=== PATIENT | female | born 1975 | race Caucasian/White ===

== ENCOUNTER 2022-03-07 08:51 | Emergency (ER) | payer OTHER ==
[2022-03-07 09:31] LABS: HCG UR QUAL POSITIVE
[2022-03-07 09:36] LABS: BASOPHILS # (AUTO) 0.1 10^3/uL (0.0-0.1); BASOPHILS % (AUTO) 0.8 %; EOSINOPHILS # (AUTO) 0.1 10^3/uL (0.0-0.7); EOSINOPHILS % (AUTO) 0.9 %; HCT - HEMATOCRIT 38.5 % (37.0-47.0); HGB - HEMOGLOBIN 12.8 g/dL (12.0-16.0); LYMPHOCYTES # (AUTO) 1.7 10^3/uL (1.5-3.5); LYMPHOCYTES % (AUTO) 15.2 %; MEAN CORPUSCULAR HEMOGLOBIN 31.3 pg (27.0-31.0); MEAN CORPUSCULAR HGB CONC 33.2 g/dL (32.0-36.0); MEAN CORPUSCULAR VOLUME 94.1 fL (81.0-99.0); MEAN PLATELET VOLUME 9.5 fL (7.9-10.8); MONOCYTES # (AUTO) 0.4 10^3/uL (0.0-1.0); MONOCYTES % (AUTO) 3.9 %; NEUTROPHILS # (AUTO) 8.8 10^3/uL (1.5-6.6); NEUTROPHILS % (AUTO) 78.7 %; PLT - PLATELET COUNT 291 10^3/uL (130-450); RED BLOOD COUNT 4.09 10^6/uL (4.20-5.40); RED CELL DISTRIBUTION WIDTH 12.9 % (12.0-15.0); WHITE BLOOD COUNT 11.2 x10^3/uL (4.8-10.8)
[2022-03-07 09:48] LABS: ALBUMIN 4.4 g/dL (3.2-5.5); ALBUMIN/GLOBULIN RATIO 1.3 (1.0-2.2); BILIRUBIN,TOTAL 0.8 mg/dL (0.2-1.0); CALCIUM 9.1 mg/dL (8.5-10.3); CREATININE 0.7 mg/dL (0.4-1.0); POTASSIUM 4.2 mmol/L (3.5-5.0); TOTAL PROTEIN 7.7 g/dL (6.7-8.2)
--- NOTE | 2022-03-07 13:33 | Ultrasound Report ---
PROCEDURE: OB First Trimester w/TV INDICATIONS: preg, vb OUTSIDE/PRIOR DATING DATA: Last menstrual period (LMP): 01/17/2022. LMP-based estimated date of delivery (KIP): 10/24/2022. First dating scan (date and location): 03/07/2022. Estimated date of delivery (KIP) from first dating scan: Not applicable. TECHNIQUE: Real-time scanning was performed of the fetus and maternal pelvic organs, with image documentation. Endovaginal scanning was also performed to better visualize the fetus and maternal ovaries. COMPARISON: None FINDINGS: Embryo: Anechoic sac noted within the central uterus. There is a probable yolk sac identified. No fe cecily pole identified. Heart rate: No heart motion identified. Measurement variability in dating: +/- 4 weeks by LMP, +/- 7 days by mean sac diameter (use before 6 weeks gestation if crown-rump length not able to be measured), +/- 5 days by crown-rump length (6-12 weeks gestation). Maternal organs: 1.6 x 1.0 x 1.5 cm probable right corpus luteal cyst. IMPRESSION: Intrauterine anechoic sac and probable yolk sac identified. No definite pole identified. Findin gs may represent early intrauterine , nonviable or occult ectopic . Recom mend close clinical observation, correlation with serum beta hCG and short-term follow-up ultrasound in one week. Reviewed by: Cathleen Mcghee MD, PhD on 03/07/2022 1:31 PM PDT Approved by: Cathleen Mcghee MD, PhD on 03/07/2022 1:31 PM PDT Station ID: [id number]
--- NOTE | 2022-03-07 14:00 | ED Physician Documentation ---
PD HPI FEMALE - Stated complaint Stated Complaint: MISCARRIAGE - Chief complaint Chief Complaint: Abd Pain - History obtained from History obtained from: Patient - Additional information Additional information: Patient comes to the emergency department chief complaint of vaginal bleeding that 2 days ago. She states it was very heavy at that time but now has diminished almost nothing. She states her last menstrual period was in early December but she was traveling so the earliest she could become was on January 29. The patient states that she was very surprised by the because she is on contraceptives. She denies any pelvic or abdominal pain. She denies any lightheadedness. She did not pass any tissue that she noticed. Patient states she has taken 1 to term and one was terminated. She states both pregnancies were without incidence. Patient states that she was actually planning to go to [facility] to have [facility]. She is from [place] and is on a long road trip and will be traveling through [place], [place], and [place] over the next week and ultimately end up in [place]. No other complaints at this time. Patient is otherwise healthy. Review of Systems Ten Systems: 10 systems reviewed and negative Constitutional: reports: Reviewed and negative Eyes: reports: Reviewed and negative Ears: reports: Reviewed and negative Nose: reports: Reviewed and negative Throat: reports: Reviewed and negative Cardiac: reports: Reviewed and negative Respiratory: reports: Reviewed and negative GI: reports: Reviewed and negative : reports: Vaginal bleeding, Missed period, Now EGA Skin: reports: Reviewed and negative Musculoskeletal: reports: Reviewed and negative Neurologic: reports: Reviewed and negative Psychiatric: reports: Reviewed and negative Endocrine: reports: Reviewed and negative Immunocompromised: reports: Reviewed and negative PD PAST MEDICAL HISTORY - Allergies Allergies/Adverse Reactions: Allergies Allergy/AdvReac Type Severity Reaction Status Date / Time No Known Drug Allergies Allergy Verified 03/07/22 09:12 PD ED PE NORMAL - Vitals Vital signs reviewed: Yes - General General: Alert and oriented X 3, No acute distress, Well developed/nourished - HEENT HEENT: Atraumatic, PERRL, EOMI, Moist mucous membranes - Neck Neck: Supple, no meningeal sign - Cardiac Cardiac: RRR, No murmur - Respiratory Respiratory: No respiratory distress, Clear bilaterally - Abdomen Abdomen: Soft, Non tender, Non distended - Female Female : Deferred - Derm Derm: Normal color, Warm and dry, No rash - Extremities Extremities: No deformity - Neuro Neuro: Alert and oriented X 3 - Psych Psych: Normal mood, Normal affect Results - Vitals Vitals: Vital Signs - 24 hr 03/07/22 03/07/22 09:08 13:51 Temperature 36.5 C 36.6 C Heart Rate 73 70 Respiratory 16 16 Rate Blood Pressure 136/66 H 121/60 O2 Saturation 100 100 Oxygen O2 Source Room air - Labs Labs: Laboratory Tests 03/07/22 03/07/22 03/07/22 09:21 09:30 09:30 WBC 11.2 H RBC 4.09 L Hgb 12.8 Hct 38.5 MCV 94.1 MCH 31.3 H MCHC 33.2 RDW 12.9 Plt Count 291 MPV 9.5 Neut # (Auto) 8.8 H Lymph # (Auto) 1.7 [place] # (Auto) 0.4 Eos # (Auto) 0.1 Baso # (Auto) 0.1 Absolute Nucleated RBC 0.00 Nucleated RBC % 0.0 Sodium 135 Potassium 4.2 Chloride 101 Carbon Dioxide 24 Anion Gap 10.0 BUN 15 Creatinine 0.7 Estimated GFR (MDRD) 91 Glucose 109 H Calcium 9.1 Total Bilirubin 0.8 AST 19 ALT 15 Alkaline Phosphatase 31 L Total Protein 7.7 Albumin 4.4 Globulin 3.3 Albumin/Globulin Ratio 1.3 Lipase 32 HCG, Quant Urine HCG, Qual POSITIVE Blood Type 03/07/22 03/07/22 09:30 09:30 WBC RBC Hgb Hct MCV MCH MCHC RDW Plt Count MPV Neut # (Auto) Lymph # (Auto) [place] # (Auto) Eos # (Auto) Baso # (Auto) Absolute Nucleated RBC Nucleated RBC % Sodium Potassium Chloride Carbon Dioxide Anion Gap BUN Creatinine Estimated GFR (MDRD) Glucose Calcium Total Bilirubin AST ALT Alkaline Phosphatase Total Protein Albumin Globulin Albumin/Globulin Ratio Lipase HCG, Quant 500.12 Urine HCG, Qual Blood Type A NEGATIVE - Rads (name of study) OB ultrasound Radiology: Final report received, EMP read indepedently, See rad report (Sac in the uterus without pole. No cardiac activity. No distinct ectopic .) PD MEDICAL DECISION MAKING - ED course Complexity details: reviewed results, re-evaluated patient, considered differential, d/w patient ED course: Patient's beta-hCG quantitatively was 500. Her ultrasound showed a sac in the uterus without evidence of the fetus. I discussed with the patient that this could represent a very early viable intrauterine , a failed that is preparing to miscarry, or an occult ectopic with sac formation in the uterus. Either way, I have advised the patient to get a repeat quantitative hCG in 3 days and plan to have a repeat ultrasound in a week unless she decides to go through with her termination tomorrow. If she does, we have discussed that she still needs to be mindful that she could have an occult ectopic and so she develops any pelvic pain or sudden uptick in bleeding, she should seek medical evaluation immediately. Departure - Departure Disposition: 01 Home, Self Care Clinical Impression: Threatened Condition: Stable Instructions: ED Miscarriage Poss Comments: Your ultrasound today shows a sac in your uterus but no evidence of cardiac activity. Is possible that you have a very early inside the uterus and the fetus is not large enough to be seen yet. It is also possible that you have a in the uterus that is not developing and your body is preparing to miscarry. Also possible, but less likely, is that you have an ectopic (outside the uterus) which is triggered the formation of a sac but no fetus. Either way, if you choose to continue with the , you will need to get a repeat hormone level in about 3 days and an ultrasound in a week to see if anything has progressed. If you choose to terminate, then please Be mindful of the development of any increasing pain in your pelvic area or sudden uptick in the amount of bleeding you have. If you notice either of these things, please proceed to the nearest emergency department for reevaluation.
[2022-03-07 14:15] VITALS: BP 115/64
== END 2022-03-07 14:14 | disposition home or self-care (01) ==
LOC: ED 08:51
DX: O20.0 Threatened abortion (principal); Z3A.00 Weeks of gestation of pregnancy not specified
CPT/HCPCS: 36415; 80053; 81025; 83690; 84702; 85025; 86900; 86901; 99282; 99284